=== PATIENT | female | born 1975 | race African-American/Black ===

== ENCOUNTER 2019-05-13 05:29 | Emergency (ER) | payer SELFPAY ==
[2019-05-13] MEDS ORDERED: methylPREDNISolone NA SUCC 125 MG/2 ML VIAL IVPUSH ONE (05:42)
--- NOTE | 2019-05-13 05:43 | PDOC ---
History of Present Illness - General Stated Complaint: ALLERGIC REACTION Time Seen by Provider: 05/13/19 05:37 History Source: Patient Exam Limitations: No Limitations - History of Present Illness Initial Comments: 05/13/19 05:53 43y F with PMH of HTN presenting to ED with complaints of lip and face swelling. Patient said she ran out of amlodipine 2d ago and took a friend's Lisinopril. She says she noticed a small amount of swelling at 9pm last night. She took 50mg Benadryl and went to sleep. She woke up and noticed her face was more swollen and came to the ER immediately. Denies swelling, chest pain, sob, throat pain, fevers, chills, abdominal pain, n/v/d, throat swelling. PMD: Satoo? PMH: see hpi Meds: lisinopril Social: denies Allergies: DINA-I (angioedema) Past History - Past Medical History Allergies/Adverse Reactions: Allergies Allergy/AdvReac Type Severity Reaction Status Date / Time DINA Inhibitors AdvReac Verified 05/13/19 05:47 Home Medications: Ambulatory Orders Amlodipine Besylate 10 mg PO DAILY 05/13/19 Amlodipine Besylate 10 mg PO DAILY #7 tablet 05/13/19 Review of Systems - Review of Systems Constitutional: No: Symptoms Reported HEENTM: Yes: See HPI Respiratory: No: Symptoms reported Cardiac (ROS): No: Symptoms Reported ABD/GI: No: Symptoms Reported : No: Symptoms Reported Musculoskeletal: No: Symptoms Reported Integumentary: No: Symptoms Reported Neurological: No: Symptoms reported *Physical Exam - Physical Exam General Appearance: Yes: Nourished, Appropriately Dressed. No: Apparent Distress HEENT: positive: EOMI, MICHAEL, Pharynx Normal (no uvula, tongue or pharyngeal swelling), Other (upper lip swlelling with L cheek swelling. Normal OP) Neck: positive: Trachea midline, Supple. negative: Lymphadenopathy (R), Lymphadenopathy (L) Respiratory/Chest: positive: Lungs Clear, Normal Breath Sounds. negative: Crackles, Rales, Rhonchi, Stridor, Wheezing Cardiovascular: positive: Regular Rhythm, Regular Rate, S1, S2. negative: Edema , JVD, Murmur Gastrointestinal/Abdominal: positive: Normal Bowel Sounds, Soft. negative: Tender Musculoskeletal: negative: CVA Tenderness Extremity: positive: Normal Capillary Refill. negative: Swelling, Calf Tenderness, Erythema Integumentary: positive: Normal Color, Dry, Warm Neurologic: positive: attendant coin operated laundry II-XII NML intact, Fully Oriented, Alert, Normal Mood/ Affect, Normal Response, Motor Strength 5/5 Medical Decision Making - Medical Decision Making 05/13/19 07:06 43y F presenting with angioedema. vitals wnl. given solumedrol. pt not in active distress. will observe for a few hours. signed out to day team. likely dc home. pt given strict instructions and 7d course of amlodipine because she ran out of medications. advised to follow up with PMD. agrees with plan. Discharge - Discharge Information Problems reviewed: Yes Clinical Impression/Diagnosis: Angioedema Qualifiers: Encounter type: initial encounter Qualified Code(s): T78.3XXA - Angioneurotic edema, initial encounter Condition: Stable - Admission No - Additional Discharge Information Prescriptions: Amlodipine Besylate 10 mg PO DAILY #7 tablet - Follow up/Referral - Patient Discharge Instructions Patient Printed Discharge Instructions: DI for Angioedema Additional Instructions: You were seen in the emergency room today for swelling to the lip and face. This is likely due to a reaction from the lisinopril. Lisinopril belongs to a class of medications called DINA inhibitors. These medications can cause swelling in some people. You must stop taking lisinopril and tell your doctor the reaction from taking this medication. You cannot take any DINA inhibitors in the future. It can take up to 72 hours for the swelling to go down. Please see your doctor early next week regarding this ED visit. The swelling should decrease on its own. Please come back to the emergency room if you have worsening swelling, feel short of breath, have difficulty breathing or if any new or concerning symptom develops. Thank you - Post Discharge Activity
[2019-05-13 05:47] VITALS: BMI 31.6
[2019-05-13 08:32] VITALS: TEMP 98.5
[2019-05-13] MEDS ORDERED: predniSONE 20 MG TABLET (UD) PO ONE (09:07)
[2019-05-13] MEDS ORDERED: predniSONE 20 MG TABLET (UD) ONE (09:25)
--- NOTE | 2019-05-13 10:01 | PDOC ---
*Physical Exam - Vital Signs Last Vital Signs Temp Pulse Resp BP Pulse Ox 98.5 F 88 20 133/93 99 05/13/19 08:31 05/13/19 08:31 05/13/19 08:31 05/13/19 08:31 05/13/19 08:31 <Brendna Valverde - Last Filed: 05/13/19 10:07> - Vital Signs Last Vital Signs Temp Pulse Resp BP Pulse Ox 98.5 F 88 20 133/93 99 05/13/19 08:31 05/13/19 08:31 05/13/19 08:31 05/13/19 08:31 05/13/19 08:31 <Coni Louis - Last Filed: 05/13/19 10:13> ED Treatment Course - Medications Given in the ED: ED Medications Discontinued Medications Generic Name Dose Route Start Last Admin Trade Name Freq PRN Reason Stop Dose Admin Methylprednisolone Sodium Succinate 125 mg 05/13/19 05:42 05/13/19 05:46 Solu-Medrol - IVPUSH 05/13/19 05:43 125 mg ONCE ONE Administration Prednisone 60 mg 05/13/19 09:07 05/13/19 09:25 Deltasone - PO 05/13/19 09:08 60 mg ONCE ONE Administration <Brendan Valverde - Last Filed: 05/13/19 10:07> - Medications Given in the ED: ED Medications Discontinued Medications Generic Name Dose Route Start Last Admin Trade Name Freq PRN Reason Stop Dose Admin Methylprednisolone Sodium Succinate 125 mg 05/13/19 05:42 05/13/19 05:46 Solu-Medrol - IVPUSH 05/13/19 05:43 125 mg ONCE ONE Administration Prednisone 60 mg 05/13/19 09:07 05/13/19 09:25 Deltasone - PO 05/13/19 09:08 60 mg ONCE ONE Administration <Coni Louis - Last Filed: 05/13/19 10:13> Medical Decision Making - Medical Decision Making 05/13/19 10:01 Pt observed for airway compromise. No signs/symptoms of impaired respiration. Pt to be discharged home with instructions to return to E.D immediately if develops any difficulties with breathing. <Brendan Valverde - Last Filed: 05/13/19 10:07> - Medical Decision Making Patient was observed here in the ED from overnight with presentation of angioedema secondary to DINA inhibitor use for the last 2 days for her blood pressure control. She is told to avoid DINA inhibitors in the future as this is bradykinin mediated and unlikely to be allergic. Patient was given steroid trial without much effect. She also took Benadryl prior to presentation at 5 AM also without effect. No indication for intubation at this time as patient remains well-appearing. There is no evidence of airway compromise, neuro intact , breathing comfortably, normal phonation, uvula is midline. Angioedema is localized to the lower face and the upper lip she is breathing comfortably. Vital signs are within normal limits, normal sats on room air and comfortable, she is comfortable with discharge and told to avoid DINA inhibitors in the future. Amlodipine was sent to her pharmacy as this is what she has taken previously for her blood pressure control. Follow-up with primary care doctor in 2 days. Return precautions for worsening symptoms including respiratory distress, airway compromise, breathing difficulties, cyanosis or any other concerns related to the angioedema. 05/13/19 10:13 <Coni Louis - Last Filed: 05/13/19 10:13> Discharge - Discharge Information Problems reviewed: Yes <Brendan Valverde - Last Filed: 05/13/19 10:07> <Coni Louis - Last Filed: 05/13/19 10:13> - Discharge Information Clinical Impression/Diagnosis: Angioedema Qualifiers: Encounter type: initial encounter Qualified Code(s): T78.3XXA - Angioneurotic edema, initial encounter Condition: Stable - Additional Discharge Information Prescriptions: Amlodipine Besylate 10 mg PO DAILY #7 tablet - Follow up/Referral - Patient Discharge Instructions Patient Printed Discharge Instructions: DI for Angioedema Additional Instructions: You were seen in the emergency room today for swelling to the lip and face. This is likely due to a reaction from the lisinopril. Lisinopril belongs to a class of medications called DINA inhibitors. These medications can cause swelling in some people. You must stop taking lisinopril and tell your doctor the reaction from taking this medication. You cannot take any DINA inhibitors in the future. It can take up to 72 hours for the swelling to go down. Please see your doctor early next week regarding this ED visit. The swelling should decrease on its own. Please come back to the emergency room if you have worsening swelling, feel short of breath, have difficulty breathing or if any new or concerning symptom develops. Thank you - Post Discharge Activity
[2019-05-13 10:15] VITALS: BP 133/85; PULSE 76
== END 2019-05-13 10:12 | disposition home or self-care (01) ==
LOC: JER 05:29
PROC: 3E0233Z Introduction of Anti-inflammatory into Muscle, Percutaneous Approach (ICD-10-PCS; principal; 2019-05-13)
DX: T78.3XXA Angioneurotic edema, initial encounter (principal); T78.49XA Other allergy, initial encounter; T46.4X5A Adverse effect of angiotensin-converting-enzyme inhibitors, initial encounter; Y92.038 Other place in apartment as the place of occurrence of the external cause; I10 Essential (primary) hypertension
CPT/HCPCS: 99282-25

== ENCOUNTER 2020-01-31 14:29 | Emergency (ER) | payer BC ==
--- NOTE | 2020-01-31 14:41 | PDOC ---
Rapid Medical Evaluation Time Seen by Provider: 01/31/20 14:32 Medical Evaluation: Allergies Allergy/AdvReac Type Severity Reaction Status Date / Time DINA Inhibitors AdvReac Verified 05/13/19 05:47 01/31/20 14:40 I have performed a brief in-person evaluation of this patient. The patient presents with a chief complaint of:dizziness and nausea while cooking at home today. Since improved. No syncope, CP or SOB. H/o HTN Pertinent physical exam findings:stable and well kelvin I have ordered the following:upreg/ua The patient will proceed to the ED for further evaluation. Discharge Disposition - Diagnosis Dizziness - Referrals - Patient Instructions - Post Discharge Activity
[2020-01-31 14:44] VITALS: BP 135/89; PULSE 98; TEMP 98.6; BMI 32.4
[2020-01-31 15:09] LABS: BASO % 0.8 % (0-2.0); EOS % 0.5 % (0-4.5); HEMATOCRIT 35.2 % (32.4-45.2); HEMOGLOBIN 10.9 GM/dL (10.7-15.3); LYMPH % 17.2 % (8-40); MCH 21.3 pg (25.7-33.7); MCHC 30.9 g/dl (32.0-36.0); MEAN PLT VOLUME 7.9 fl (7.5-11.1); MONO % 6.7 % (3.8-10.2); NEUT % 74.8 % (42.8-82.8); PLATELET COUNT 331 K/MM3 (134-434); RDW 20.2 % (11.6-15.6); WHITE BLOOD COUNT 8.4 K/mm3 (4.0-10.0)
[2020-01-31 15:22] LABS: EPI CELLS >36 /uL (0-25.1); HYALINE CASTS 11 /uL (0-3.1); PH,URINE 8.5 (5.0-8.0); URINE APPEARANCE CLOUDY; URINE BACTERIA 2162 /uL (0-1359); URINE BILIRUBIN NEGATIVE (NEGATIVE); URINE COLOR YELLOW; URINE GLUCOSE (UA) NEGATIVE (NEGATIVE); URINE KETONE TRACE (NEGATIVE); URINE LEUK ESTERASE 1+ (NEGATIVE); URINE NITRITE NEGATIVE (NEGATIVE); URINE PROTEIN 1+ (NEGATIVE); URINE RBC 35 /uL (0-23.9); URINE WBC 86 /uL (0-25.8)
[2020-01-31 15:23] LABS: HCG,QUALITATIVE URINE Negative
[2020-01-31 15:39] LABS: ANISOCYTOSIS 2+; MACROCYTOSIS 1+; OVALOCYTE 1+; PLATELET ESTIMATE NORMAL
[2020-01-31 15:52] LABS: ALBUMIN 3.6 g/dl (3.4-5.0); BILIRUBIN,TOTAL 0.1 mg/dL (0.2-1); BLOOD UREA NITROGEN 10.8 mg/dL (7-18); CALCIUM 8.9 mg/dL (8.5-10.1); CREATININE 0.8 mg/dL (0.55-1.3); POTASSIUM 3.9 mmol/L (3.5-5.1); TOT PROT 7.6 g/dl (6.4-8.2)
[2020-01-31] MEDS ORDERED: SODIUM CHLORIDE 1,000 ML IV STA (16:55)
--- NOTE | 2020-01-31 16:55 | PDOC ---
History of Present Illness - General Chief Complaint: Lightheaded Stated Complaint: NAUSEA,DIZZINESS Time Seen by Provider: 01/31/20 14:32 History Source: Patient Exam Limitations: No Limitations - History of Present Illness Initial Comments: 01/31/20 16:51 HISTORY OF PRESENT ILLNESS: 44-year-old woman with past medical history of hypertension presents emergency department for evaluation of brief episode of lightheadedness followed by one episode of nonbilious nonbloody vomitus. Patient reports the vomit was undigested food. Patient reports she has eaten nuts, bananas and had a candy after she vomited and has been free of dizziness since then. Patient reports she feels "slow like I took a large dose of Benadryl." She denies fevers, chills, headaches, blurry vision, chest pain, shortness of breath, abdominal pain, constipation, diarrhea, vaginal bleeding, vaginal discharge, hematuria or dysuria. No recent travel or sick contacts. PAST MEDICAL HISTORY: Denies past medical history SURGICAL HISTORY: Denies ALLERGIES: DINA inhibitors REVIEW OF SYSTEMS General/Constitutional: Denies fever or chills. Denies weakness, weight change. HEENT: Denies change in vision. Denies ear pain or discharge. Denies sore throat. Cardiovascular: Denies chest pain or shortness of breath. Respiratory: Denies cough, wheezing, or hemoptysis. Gastrointestinal: See HPI Genitourinary: Denies dysuria, frequency, or change in urination. Musculoskeletal: Denies joint or muscle swelling or pain. Denies neck or back pain. Skin and breasts: Denies rash or easy bruising. Neurologic: Denies headache, vertigo, loss of consciousness, or loss of sensation. Psychiatric: Denies depression or anxiety. Endocrine: Denies increased thirst. Denies abnormal weight change. Hematologic/Lymphatic: Denies anemia, easy bleeding, or history of blood clots. Allergic/Immunologic: Denies hives or skin allergy. Denies latex allergy. PHYSICAL EXAM General Appearance: Well-appearing, appropriately dressed. No apparent distress, no intoxication. HEENT: EOMI, PERRLA, normal ENT inspection, normal voice, TMs normal, pharynx normal. No conjunctival pallor. No photophobia, scleral icterus. Neck: Supple. Trachea midline. No tenderness, rigidity, carotid bruit, stridor, lymphadenopathy, or thyromegaly. Respiratory/Chest: Lungs CTAB. No shortness of breath, chest tenderness, respiratory distress, accessory muscle use. No crackles, rales, rhonchi, stridor, wheezing, dullness Cardiovascular: RRR. S1, S2. No JVD, murmur, bradycardia, tachycardia. Vascular Pulses: Dorsalis-Pedis (R): 2+, Dorsalis-Pedis (L): 2+ Gastrointestinal/Abdominal: Normal bowel sounds. Abdomen soft, non-distended. N o tenderness or rebound tenderness. No organomegaly, pulsatile mass, guarding, hernia, hepatomegaly, splenomegaly. Lymphatic: No adenopathy, tenderness. Musculoskeletal/Extremities: Normal inspection. FROM of all extremities, normal capillary refill. Pelvis Stable. No CVA tenderness. No tenderness to extremities, pedal edema, swelling, erythema or deformity. Integumentary: Appropriate color, dry, warm. No cyanosis, erythema, jaundice or rash Neurologic: autocad designer II-XII intact. Fully oriented, alert. Appropriate mood/affect. Motor strength 5/5. No appreciable EOM palsy, facial droop or sensory deficit. 01/31/20 16:55 Past History - Medical History Allergies/Adverse Reactions: Allergies Allergy/AdvReac Type Severity Reaction Status Date / Time lisinopril Allergy Verified 01/31/20 14:44 DINA Inhibitors AdvReac Verified 01/31/20 14:44 Home Medications: Ambulatory Orders Amlodipine Besylate 10 mg PO DAILY 05/13/19 Amlodipine Besylate 10 mg PO DAILY #7 tablet 05/13/19 Cephalexin Monohydrate [Keflex -] 500 mg PO BID #20 capsule 01/31/20 COPD: No HTN: Yes - Immunization History Td Vaccination: Yes TDAP Vaccination: Yes Immunization Up to Date: Yes - Psycho-Social/Smoking History Smoking History: Never smoked Have you smoked in the past 12 months: No *Physical Exam - Vital Signs Last Vital Signs Temp Pulse Resp BP Pulse Ox 98.6 F 98 H 18 135/89 99 01/31/20 14:38 01/31/20 14:38 01/31/20 14:38 01/31/20 14:38 01/31/20 14:38 ED Treatment Course - LABORATORY CBC & Chemistry Diagram: 01/31/20 15:00 01/31/20 15:00 - ADDITIONAL ORDERS Additional order review: Laboratory Results 01/31/20 01/31/20 15:00 15:00 Sodium 138 Potassium 3.9 Chloride 104 Carbon Dioxide 28 Anion Gap 6 L BUN 10.8 Creatinine 0.8 Est GFR (CKD-EPI)AfAm 103.92 Est GFR (CKD-EPI)NonAf 89.66 Random Glucose 112 H Calcium 8.9 Total Bilirubin 0.1 L AST 11 L ALT 20 Alkaline Phosphatase 70 Total Protein 7.6 Albumin 3.6 Urine Color Yellow Urine Appearance Cloudy Urine pH 8.5 H Ur Specific [place] 1.023 Urine Protein 1+ H Urine Glucose (UA) Negative Urine Ketones Trace H Urine Blood Trace Urine Nitrite Negative Urine Bilirubin Negative Urine Urobilinogen 1.0 Ur Leukocyte Esterase 1+ H Urine WBC (Auto) 86 Urine RBC (Auto) 35 Urine Casts (Auto) 11 U Pathogenic Cast Auto Non seen U Epithel Cells (Auto) >36 Urine Bacteria (Auto) 2162 Urine HCG, Qual Negative 01/31/20 15:00 RBC 5.10 MCV 69.0 L MCHC 30.9 L RDW 20.2 H MPV 7.9 Neutrophils % 74.8 Lymphocytes % 17.2 Monocytes % 6.7 Eosinophils % 0.5 Basophils % 0.8 Medical Decision Making - Medical Decision Making 01/31/20 16:53 A/P: 44-year-old woman with lightheadedness and vomiting is currently resolved Physical exam is unremarkable. Laboratory testing is suggestive of urinary tract infection. Normal saline 1 L IV bolus Discharge home with prescription for Keflex. I discussed the physical exam findings, ancillary test results and final diagnoses with the patient. I answered all of the patient's questions. The patient was satisfied with the care received and felt comfortable with the discharge plan and treatment plan. The patient will call their primary care ph ysician within 24 hours to arrange follow-up and will return to the Emergency Department with any new, persistent or worsening symptoms. Portions of this note have been documented using voice recognition software. As a result, errors may occur in the instrument repair supervisor process. Effort has been made to correct all grammatical and instrument repair supervisor error, but some may have been missed which may produce sporadic inaccurate instrument repair supervisor or nonsensical phrases. Discharge - Discharge Information Problems reviewed: Yes Clinical Impression/Diagnosis: UTI (urinary tract infection) Qualifiers: Urinary tract infection type: acute cystitis Hematuria presence: without hematuria Qualified Code(s): N30.00 - Acute cystitis without hematuria Condition: Stable Disposition: HOME - Admission No - Additional Discharge Information Prescriptions: Cephalexin Monohydrate [Keflex -] 500 mg PO BID #20 capsule - Follow up/Referral - Patient Discharge Instructions Additional Instructions: Rest, drink lots of fluids: Teas, water, soups Avoid contact with others until fevers and symptoms resolved Lots of handwashing and good hygiene Continue [id number] medications for symptomatic relief Tylenol or Motrin for fever and pain Continue all of antibiotics until completed Followup with private physician in one week for repeat urinalysis/reevaluation Return to emergency department for worsened symptoms, fevers, dehydration - Post Discharge Activity
== END 2020-01-31 18:08 | disposition home or self-care (01) ==
LOC: JER 14:29
PROC: 3E0337Z Introduction of Electrolytic and Water Balance Substance into Peripheral Vein, Percutaneous Approach (ICD-10-PCS; principal; 2020-01-31)
DX: N30.00 Acute cystitis without hematuria (principal)
CPT/HCPCS: 36415; 80053; 81003; 84703; 85025; 99283-25

== ENCOUNTER 2021-04-27 06:16 | Emergency (ER) | payer BC ==
[2021-04-27 06:39] VITALS: BMI 29.9
[2021-04-27] MEDS ORDERED: ACETAMINOPHEN 500 MG TABLET (FP) ONE (07:47)
[2021-04-27] MEDS ORDERED: ACETAMINOPHEN 325 MG TABLET (FP) PO ONE (08:06)
[2021-04-27 08:12] LABS: ALBUMIN 3.7 g/dl (3.4-5.0); CALCIUM 8.4 mg/dL (8.5-10.1)
[2021-04-27 08:14] LABS: BLOOD UREA NITROGEN 8.6 mg/dL (7-18)
[2021-04-27 08:16] LABS: CREATININE 0.7 mg/dL (0.55-1.3)
[2021-04-27 08:18] LABS: BILIRUBIN,TOTAL 0.2 mg/dL (0.2-1); TOT PROT 8.3 g/dl (6.4-8.2)
[2021-04-27 08:24] LABS: INR 1.12 (0.83-1.09); PROTHROMBIN TIME (PATIENT) 12.6 SEC (9.7-13.0)
[2021-04-27 08:27] LABS: ACTIVATED PTT 31.3 SECONDS (25.2-36.5)
[2021-04-27 08:36] LABS: BASO % 0.5 % (0-2.0); EOS % 1.6 % (0-4.5); HEMATOCRIT 34.6 % (32.4-45.2); HEMOGLOBIN 11.1 GM/dL (10.7-15.3); LYMPH % 23.9 % (8-40); MCH 22.4 pg (25.7-33.7); MEAN PLT VOLUME 8.4 fl (7.5-11.1); MONO % 8.3 % (3.8-10.2); NEUT % 65.7 % (42.8-82.8); PLATELET COUNT 368 10^3/uL (134-434); RBC 4.94 M/mm3 (3.60-5.2); RDW 19.1 % (11.6-15.6); WHITE BLOOD COUNT 5.9 K/mm3 (4.0-10.0)
[2021-04-27] MEDS ORDERED: LACTATED RINGERS SOLUTION 1000 ML INFUS.BAG IV ONE (09:48)
[2021-04-27 10:55] LABS: EPI CELLS 2 /uL (0-25.1); HYALINE CASTS 0 /uL (0-3.1); URINE APPEARANCE CLEAR; URINE BACTERIA 5 /uL (0-1359); URINE BILIRUBIN NEGATIVE (NEGATIVE); URINE COLOR YELLOW; URINE GLUCOSE (UA) NEGATIVE (NEGATIVE); URINE KETONE NEGATIVE (NEGATIVE); URINE LEUK ESTERASE NEGATIVE (NEGATIVE); URINE NITRITE NEGATIVE (NEGATIVE); URINE PROTEIN NEGATIVE (NEGATIVE); URINE RBC 618 /uL (0-23.9); URINE UROBILINOGEN 0.2 mg/dL (0.2-1.0); URINE WBC 1 /uL (0-25.8)
[2021-04-27 11:29] LABS: BASO % 0.7 % (0-2.0); EOS % 1.8 % (0-4.5); HEMATOCRIT 33.8 % (32.4-45.2); HEMOGLOBIN 10.9 GM/dL (10.7-15.3); LYMPH % 24.5 % (8-40); MCHC 32.1 g/dl (32.0-36.0); MEAN CELL VOLUME 68.4 fl (80-96); MEAN PLT VOLUME 7.4 fl (7.5-11.1); MONO % 6.4 % (3.8-10.2); NEUT % 66.6 % (42.8-82.8); PLATELET COUNT 329 10^3/uL (134-434); RBC 4.94 M/mm3 (3.60-5.2); RDW 18.9 % (11.6-15.6); WHITE BLOOD COUNT 5.5 K/mm3 (4.0-10.0)
[2021-04-27 11:32] VITALS: TEMP 97.5
[2021-04-27 11:38] VITALS: BP 142/91; PULSE 74
[2021-04-27 13:34] LABS: ANISOCYTOSIS 2+; MACROCYTOSIS 1+; PLATELET ESTIMATE NORMAL
== END 2021-04-27 12:05 | disposition home or self-care (01) ==
LOC: JER 06:16
DX: N93.9 Abnormal uterine and vaginal bleeding, unspecified (principal); O03.9 Complete or unspecified spontaneous abortion without complication
CPT/HCPCS: 36415; 76817-TC; 80053; 81003; 84702; 85025; 85610; 85730; 86850; 86900; 86901; 87086; 93005; 93010; 99284-25

== ENCOUNTER 2023-02-01 08:52 | Emergency (ER) | payer BC ==
[2023-02-01 09:03] VITALS: BMI 30.7
[2023-02-01] MEDS ORDERED: ACETAMINOPHEN 500 MG TABLET (FP) PO ONE (09:29)
[2023-02-01] MEDS ORDERED: KETOROLAC TROMETHAMINE 30 MG/1 ML VIAL IM ONE (09:29)
[2023-02-01] MEDS ORDERED: ACETAMINOPHEN 325 MG TABLET (FP) ONE (09:49)
[2023-02-01] MEDS ORDERED: KETOROLAC TROMETHAMINE 30 MG/1 ML VIAL ONE (09:49)
[2023-02-01 10:46] VITALS: BP 140/85; PULSE 72; RESP 13; TEMP 97.8
== END 2023-02-01 10:46 | disposition home or self-care (01) ==
LOC: JER 08:52
PROC: 3E0233Z Introduction of Anti-inflammatory into Muscle, Percutaneous Approach (ICD-10-PCS; principal; 2023-02-01)
DX: M25.512 Pain in left shoulder (principal)
CPT/HCPCS: 73030-TC-LT-FY; 93005; 93010; 99284-25